=== PATIENT | male | born 2000 | race Caucasian/White ===

== ENCOUNTER 2024-02-06 08:05 | Inpatient (IN) | payer OTHER ==
[~2024-02-06] VITALS: Ht 180.3 cm; Wt 96.1 kg
[2024-02-06 08:35] VITALS: PULSE 63; RESP 16; O2SAT 97
[2024-02-06] MEDS: LORazepam 2MG/ML-1ML VIAL IV ONE (12:00)
[2024-02-06] MEDS: SODIUM CHLORIDE 0.9% 1,000 ML IV ONE ×2 (12:05→13:00)
[2024-02-06 12:14] LABS: Basophils # (auto) 0.1 10 ^3/uL (0-0.2); Basophils % (auto) 0.6 % (0.0-2.0); Eosinophils # (auto) 0 10 ^3/uL (0-0.8); Eosinophils % (auto) 0.3 % (0.0-7.0); Hematocrit 43.7 % (41.0-53.0); Hemoglobin 15.4 g/dL (13.5-17.5); Lymphocytes # (auto) 2.5 10 ^3/uL (0.4-5.4); Lymphocytes % (auto) 16.9 % (10.0-50.0); Mean Corpuscular Hemoglobin 30.3 pg (28.0-32.0); Mean Corpuscular Hgb Conc. 35.2 g/dL (32.0-36.0); Mean Corpuscular Volume 86.2 fL (80.0-100.0); Monocytes # (auto) 1.6 10 ^3/uL (0-1.3); Monocytes % (auto) 10.9 % (0.0-12.0); Neutrophils # (auto) 10.5 10 ^3/uL (1.6-8.6); Neutrophils % (auto) 71.3 % (37.0-80.0); Red Blood Cells 5.07 10^6/uL (4.5-5.90); Red Cell Distribution Width 13.5 % (11.8-14.3); White Blood Cell 14.7 10^3/uL (4.4-10.8)
[2024-02-06 12:21] LABS: Chloride 106 mmol/L (98-107); Potassium 3.8 mmol/L (3.5-5.1); Sodium 139 mmol/L (136-145)
[2024-02-06 12:22] LABS: Anion Gap 7 (5-15); Calcium 10.1 mg/dL (8.5-10.1); Carbon Dioxide 26 mmol/L (20-30)
[2024-02-06 12:27] LABS: BUN/Creatinine Ratio 14.6 (10.0-20.0); Blood Urea Nitrogen 14 mg/dL (9-23); Glucose 97 mg/dL (74-106)
[2024-02-06] MEDS ORDERED: HYDROcodone-ACET 5/325MG TAB PO PRN (14:30)
[2024-02-06] MEDS ORDERED: MORPHINE SULFATE INJ 2 MG/ml SYRG IV PRN (14:30)
[2024-02-06] MEDS: cefTRIAXone 1GM/50ML D5W 50 ML IV ONE (14:53)
[2024-02-06] MEDS: SODIUM CHLORIDE 0.9% 1,000 ML IV SCH (15:00)
[2024-02-06 16:02] LABS: Urine Bacteria None Seen /hpf (None Seen)
[2024-02-06 16:13] LABS: Urine Blood Negative /uL (Negative); Urine Clarity Clear (Clear); Urine Color Yellow (Yellow); Urine Mucus FEW (None Seen); Urine Protein, UAD Negative (Negative); Urine Specific Gravity 1.023 (1.001-1.035); Urine Urobilinogen Normal (Negative); Urine WBC 1 /hpf (0 - 3); Urine pH 5.5 (5.0-9.0)
[2024-02-06 16:25] LABS: Amphetamine Screen, Urine Neg (NEGATIVE); Barbiturate Scree,Urine Neg (NEGATIVE); Benzodiazephine Screen, Urine Neg (NEGATIVE)
[2024-02-06 16:26] LABS: Cannabinoid Screen, Urine Neg (NEGATIVE); Cocaine Screen, Urine Neg (NEGATIVE); Opiate Scree,Urine Neg (NEGATIVE); Phencyclidine Screen, Urine Neg (NEGATIVE)
[2024-02-06 17:22] VITALS: BP 110/72; PULSE 85; RESP 16; TEMP 98.2; O2SAT 99
[2024-02-06] MEDS ORDERED: HYDR50TA69 PO (20:34)
[2024-02-06] MEDS ORDERED: IBU600T PO (20:34)
[2024-02-06] MEDS ORDERED: TRAZ-228 PO (20:34)
[2024-02-06 21:00] VITALS: BP 127/77; PULSE 73; RESP 18; TEMP 98.4; O2SAT 97
[2024-02-07 01:19] VITALS: BP 96/68; PULSE 77; RESP 20; TEMP 98.6; O2SAT 99
[2024-02-07 05:00] VITALS: BP 109/56; PULSE 49; RESP 18; TEMP 98.6; O2SAT 96
[2024-02-07] MEDS: ACETAMINOPHEN 325 MG TAB PO PRN (06:26)
[2024-02-07 06:35] LABS: Basophils # (auto) 0 10 ^3/uL (0-0.2); Basophils % (auto) 0.4 % (0.0-2.0); Eosinophils # (auto) 0.2 10 ^3/uL (0-0.8); Hematocrit 41.8 % (41.0-53.0); Hemoglobin 14.7 g/dL (13.5-17.5); Lymphocytes # (auto) 2.5 10 ^3/uL (0.4-5.4); Lymphocytes % (auto) 31.7 % (10.0-50.0); Mean Corpuscular Hemoglobin 30.9 pg (28.0-32.0); Mean Corpuscular Hgb Conc. 35.1 g/dL (32.0-36.0); Mean Corpuscular Volume 87.9 fL (80.0-100.0); Monocytes # (auto) 0.9 10 ^3/uL (0-1.3); Neutrophils # (auto) 4.3 10 ^3/uL (1.6-8.6); Neutrophils % (auto) 54.9 % (37.0-80.0); Nucleated Red Blood Cells % 0.1 %; Red Blood Cells 4.75 10^6/uL (4.5-5.90); Red Cell Distribution Width 13.7 % (11.8-14.3); White Blood Cell 7.8 10^3/uL (4.4-10.8)
[2024-02-07 06:47] LABS: Alanine Aminotransferase 42 U/L (7-40); Albumin 4.3 g/dL (3.2-4.8); Alkaline Phosphatase 85 U/L (46-116); Anion Gap 8 (5-15); Aspartate Aminotransferase 35 U/L (13-40); BUN/Creatinine Ratio 18.9 (10.0-20.0); Bilirubin, Total 2.7 mg/dL (0.2-1.0); Blood Urea Nitrogen 17 mg/dL (9-23); Calcium 9.5 mg/dL (8.5-10.1); Carbon Dioxide 25 mmol/L (20-30); Chloride 108 mmol/L (98-107); Glucose 88 mg/dL (74-106); Potassium 3.8 mmol/L (3.5-5.1); Sodium 141 mmol/L (136-145); Total Protein 6.3 g/dL (5.7-8.2)
[2024-02-07 08:30] VITALS: BP 111/58; PULSE 62; RESP 18; TEMP 98; O2SAT 96
[2024-02-07 12:25] VITALS: BP 128/77; PULSE 61; RESP 19; TEMP 98; O2SAT 97
[2024-02-07 16:20] VITALS: BP 119/62; PULSE 65; RESP 19; TEMP 98.3; O2SAT 96
[2024-02-07] MEDS: CYCLOBENZAPRINE HCL 10 MG TAB PO SCH (20:06)
== END 2024-02-07 19:58 | disposition left against medical advice (07) | DRG 552 ==
LOC: EDBD 08:05 → ER 08:05 → OVERFLOW 14:30 → EAST 17:03
PROVIDERS: ADMIT Internal Medicine; ATTEND Emergency Medicine
DX: M48.07 Spinal stenosis, lumbosacral region (principal); M43.07 Spondylolysis, lumbosacral region; M51.36 Other intervertebral disc degeneration, lumbar region; G89.4 Chronic pain syndrome; M54.9 Dorsalgia, unspecified; Z53.29 Procedure and treatment not carried out because of patient's decision for other reasons; R74.01 Elevation of levels of liver transaminase levels; D72.829 Elevated white blood cell count, unspecified
CPT/HCPCS: 36415; 72131; 72148; 80048; 80053; 80307; 81001; 85025; 87040; 87086; G0378